=== PATIENT | male | born 1965 | race Caucasian/White ===

== ENCOUNTER → 2020-12-11 | Outpatient (CLI) | payer MEDICARE, BC | LOC: EXRD 08:45 | DX: M79.641 Pain in right hand (principal); M79.642 Pain in left hand; M79.10 Myalgia, unspecified site | CPT/HCPCS: 73130 ==

== ENCOUNTER → 2021-02-11 | Outpatient (CLI) | payer MEDICARE, BC | LOC: KOH-I 11:07 | DX: N20.9 Urinary calculus, unspecified (principal) | CPT/HCPCS: 76775 ==

== ENCOUNTER → 2021-10-07 | Outpatient (CLI) | payer MEDICARE, BC ==
[2021-10-07 12:47] LABS: HEMOGLOBIN 14.1 gm/dl (14.0-17.5); RED BLOOD COUNT 5.05 M/UL (4.20-5.50); WHITE BLOOD COUNT 7.7 K/UL (4.5-11.0)
[2021-10-07 13:21] LABS: BUN/CREATININE RATIO 13 (0-10)
[2021-10-08 10:15] LABS: CREATININE, URINE 66.5 mg/dL (Not Estab.)
== END ==
LOC: LAB 11:27
PROVIDERS: Internal Medicine Nephrology
DX: R80.9 Proteinuria, unspecified (principal); E11.65 Type 2 diabetes mellitus with hyperglycemia; E78.5 Hyperlipidemia, unspecified; E55.9 Vitamin D deficiency, unspecified; E53.8 Deficiency of other specified B group vitamins; R53.83 Other fatigue
CPT/HCPCS: 36415; 80053; 80061; 82043; 82570; 82607; 83036; 84156; 84439; 84443; 85025